=== PATIENT | female | born 1965 | race Caucasian/White ===

== ENCOUNTER → 2020-12-08 | Outpatient (CLI) | payer MEDICARE ==
[~2020-12-08] MED LIST: ALPR.5 PO; BUSP5 PO; ESTR2 PO; Flomax0.4 MG PO; HYDACE10B PO; Hard Nails2500 MCG PO; KETO10 PO; LEVSOD75 PO; METO25ER PO; Norco 5-325 Ta1 EACH PO; PROM25 PO; TRAZ50 PO
== END | disposition home or self-care (01) ==
LOC: LAB SHORT 09:15 → LAB 09:15
DX: R30.0 Dysuria (principal)
CPT/HCPCS: 87077; 87086; 87186

== ENCOUNTER → 2025-01-04 | Outpatient (CLI) | payer MEDICARE ==
[2025-01-09 09:22] LABS: Stool Occult Bld Immuno 1 Negative (NEGATIVE)
== END ==
LOC: LAB 12:00 → LAB SHORT 12:00
DX: Z12.11 Encounter for screening for malignant neoplasm of colon (principal)
CPT/HCPCS: G0328